=== PATIENT | female | born 1945 | race African-American/Black ===

== ENCOUNTER → 2019-01-28 | Emergency (ER) | payer MEDICARE | LOC: BURERS 10:49 | DX: S39.012A Strain of muscle, fascia and tendon of lower back, initial encounter (principal); E78.5 Hyperlipidemia, unspecified; I10 Essential (primary) hypertension; F17.220 Nicotine dependence, chewing tobacco, uncomplicated; Z79.899 Other long term (current) drug therapy; X50.9XXA Other and unspecified overexertion or strenuous movements or postures, initial encounter | CPT/HCPCS: 99282 ==

== ENCOUNTER 2023-06-27 16:12 | Emergency (ER) | payer OTHER ==
[2023-06-27] MEDS ORDERED: Ipratropium/Albuterol 3 ML NEB ONE (17:02)
[2023-06-27 17:04] LABS: #Basophils 0.1 thou/uL (0.0-0.2); #Monocytes 0.9 thou/uL (0.11-0.59); #Neutrophils 9.1 thou/uL (1.40-6.50); %Basophils 1.1 % (0.0-1.0); %Eosinophils 0.3 % (0.0-10.0); %Lymphocytes 16.5 % (21.0-51.0); %Monocytes 7.7 % (0.0-10.0); %Neutrophils 74.5 % (42.0-75.0); Hematocrit 41.3 % (36.0-47.0); Hemoglobin 13.5 g/dL (12.0-16.0); Mean Corpuscular HGB CONC 32.6 g/dL (32.0-36.0); Mean Corpuscular Hemoglobin 28.6 pg (27.0-31.0); Mean Corpuscular Volume 87.7 fl (78.0-98.0); Mean Platelet Volume 7.7 fL (7.4-10.4); Platelet Count 359 10x3/uL (130-400); RBC Distribution Width 11.8 % (11.5-14.5); Red Blood Cell (RBC) Count 4.71 mill/uL (4.20-5.40); White Blood Cell (WBC) Count 12.2 10x3/uL (4.8-10.8)
[2023-06-27 17:18] LABS: ALT (SGPT) 17 U/L (8-55); AST (SGOT) 17 U/L (5-34); Albumin 3.6 g/dL (3.4-4.8); Alkaline Phosphatase 63 U/L (40-110); Anion Gap 16 mmol/L (10-20); BUN (Urea Nitrogen) 6 mg/dL (9.8-20.1); Bilirubin, Total 0.6 mg/dL (0.2-1.2); Calc. Creatinine Clearance 0 mL/min (70-130); Calcium 8.8 mg/dL (7.8-10.44); Carbon Dioxide 24 mmol/L (23-31); Chloride 100 mmol/L (98-107); Estimated GFR 90; Globulin 4.1 g/dL (2.4-3.5); Glucose 103 mg/dL (83-110); Potassium 3.3 mmol/L (3.5-5.1); Protein, Total 7.7 g/dL (5.8-8.1); Sodium 137 mmol/L (136-145)
[2023-06-27] MEDS ORDERED: methylPREDNISolone Acetate 40 mg/ml Vial ONE (18:01)
[2023-06-27] MEDS ORDERED: Azithromycin 250 MG TAB ONE (18:01)
[2023-06-27] MEDS ORDERED: Ondansetron ODT 4 MG TAB ONE (18:28)
== END 2023-06-27 18:13 | disposition home or self-care (01) ==
LOC: BURERS 16:12
DX: J20.9 Acute bronchitis, unspecified (principal); I10 Essential (primary) hypertension; R11.2 Nausea with vomiting, unspecified; F17.220 Nicotine dependence, chewing tobacco, uncomplicated
CPT/HCPCS: 71046; 80053; 85025; 87804; 94640; 96372; J1030; J7620; Q0162